=== PATIENT | female | born 1955 | race Caucasian/White ===

== ENCOUNTER 2017-01-14 19:07 | Emergency (ER) | payer OTHER ==
[2017-01-14 19:17] VITALS: BP 135/75; PULSE 75; RESP 16; TEMP 97.2; O2SAT 97
[2017-01-14] MEDS ORDERED: LET GEL TOPICAL 1 EA SYR TP ONE (19:41)
--- NOTE | 2017-01-14 20:17 | EDPHY ---
H & P Time Seen by Provider: 01/14/17 19:34 HPI/ROS: This patient was cutting lettuce at home when new Inadvertently cut her left 2nd finger tip with a skin avulsion with ongoing bleeding despite direct pressure. The injury occurred at 3:00 p.m.. She denies any other associated symptoms. She has no other injuries. ROS: Neuro: No numbness Musculoskeletal: No difficulty moving the affected finger. No other injuries. Cardiovascular: No lightheadedness. 5 point ROS is otherwise negative. Past Medical/Surgical History: Tetanus is up-to-date. No immunosuppression or risk factors for poor wound healing Smoking Status: Never smoked Physical Exam: Physical Exam Vital signs are normal. General: No acute distress Lungs: No respiratory distress. Cardiac: Brisk capillary refill is intact throughout. Skin: No rash or pallor - the patient has a 5 mm x 1 cm skin avulsion to the left index finger tip with mild study bleeding. This approaches the nail bed does not include the nail bed. It is oriented toward the ulnar aspect of the affected finger. no foreign bodies are evident on direct examination. Musculoskeletal: Noted bony tenderness to the affected finger. She retains full range of motion. Neuro: Alert and oriented x3 with no sensorimotor deficits to the affected finger. Constitutional: Initial Vital Signs Temperature (C) 36.2 C 01/14/17 19:14 Heart Rate 75 01/14/17 19:14 Respiratory Rate 16 01/14/17 19:14 Blood Pressure 135/75 H 01/14/17 19:14 O2 Sat (%) 97 01/14/17 19:14 O2 Delivery Mode Room Air Allergies/Adverse Reactions: No Known Allergies Allergy (Unverified 01/14/16 11:12) Home Medications: Medication Instructions Recorded Actovela 03/04/10 Aspirin 81mg (OTC) 01/14/16 Calcium 1,200 mg PO DAILY 01/14/16 Fish Oil 500 mg PO DAILY 01/14/16 Lopreeza 1 mg-0.5 mg Tablet PO DAILY 01/14/16 Metamucil PO DAILY 01/14/16 Multi-Vitamin Daily 01/14/16 Ocuvite Eye + Multi Tablet 01/14/16 Probiotic 01/14/16 Proventil Inhaler HFA (RX) 90 mcg IH Q4 PRN 01/14/16 SUMAtriptan 100 mg PO PRN PRN 01/14/16 Vitamin D3 5,000 iunits PO DAILY 01/14/16 ZOLPIDEM TARTRATE 10 mg PO HS PRN 01/14/16 MDM/Departure - MDM Medications Given: Discontinued Medications Tetracaine/Epinephrine/Lidocaine (Let Gel Topical) 1 ea TP EDNOW ONE Stop: 01/14/17 19:42 Last Admin: 01/14/17 19:45 Dose: 1 ea ED Course/Re-evaluation: Wound is cleaned with soapy water by our tech. Surgicel dressing is applied with hemostasis and tube gauze applied. Counseled regarding wound care. She is provided with stack splint for after the dressing is removed in 2-3 days to protect the finger tip until it heals. - Depart Disposition: Home, Routine, Self-Care Clinical Impression: Avulsion, finger tip Qualifiers: Encounter type: initial encounter Qualified Code(s): S61.209A - Unspecified open wound of unspecified finger without damage to nail, initial encounter Condition: Good Instructions: Skin Avulsion (ED) Additional Instructions: Diagnosis: Skin avulsion -left 2nd finger Plan: Keep the dressing in place for the next 2-3 days. Then remove it by soaking it in peroxide. Thereafter, clean wound daily with warm soapy water. Wear a bandage while your active and/or a finger tip splint -provided. However , it you should also get air to the wound for part of the day so remove the dressing for part of the day. Return if you develop recurrent bleeding despite the plan, or evidence of infection such as redness, discharge or other concerns. Referrals: Ramiro Correia MD [Primary Care Provider] - As per Instructions
== END 2017-01-14 20:22 | disposition home or self-care (01) ==
LOC: CED 19:07
DX: S61.201A Unspecified open wound of left index finger without damage to nail, initial encounter (principal); Z79.82 Long term (current) use of aspirin; W45.8XXA Other foreign body or object entering through skin, initial encounter; Y92.009 Unspecified place in unspecified non-institutional (private) residence as the place of occurrence of the external cause; Y99.8 Other external cause status; Y93.G1 Activity, food preparation and clean up